=== PATIENT | male | born 1970 | race Caucasian/White ===

== ENCOUNTER 2023-06-04 20:20 | Emergency (ER) | payer OTHER ==
[2023-06-04] MEDS ORDERED: Ondansetron PF 4 MG/2 ML Vial ONE (21:36)
[2023-06-04] MEDS ORDERED: Morphine 4 MG/ML VIAL ONE ×2 (21:36→22:43)
[2023-06-04 21:41] LABS: #Eosinphils 0.2 10x3/uL (0.0-0.5); #Monocytes 0.6 10x3/uL (0.0-1.1); #Neutrophils 4.5 10x3/uL (1.5-8.4); %Basophils 0.5 % (0.0-2.0); %Eosinophils 2.8 % (0.0-6.0); %Lymphocytes 34.9 % (18.0-47.0); %Monocytes 6.8 % (0.0-10.0); %Neutrophils 54.8 % (40.0-75.0); Hematocrit 42.7 % (38.8-50.0); Hemoglobin 14.9 g/dL (13.5-17.5); Mean Corpuscular HGB CONC 34.9 g/dL (32.0-36.0); Mean Corpuscular Hemoglobin 30.7 pg (27.0-33.0); Mean Platelet Volume 9.9 fl (7.4-10.4); Platelet Count 264 10x3/uL (150-450); RBC Distribution Width 12.5 % (11.5-14.5); Red Blood Cell (RBC) Count 4.85 10x6/uL (4.32-5.72); White Blood Cell (WBC) Count 8.3 10x3/uL (3.5-10.5)
[2023-06-04 21:50] LABS: ALT (SGPT) 18 U/L (8-55); AST (SGOT) 15 U/L (5-34); Albumin 4.8 g/dL (3.5-5.0); Alkaline Phosphatase 53 U/L (40-110); Anion Gap 17 mmol/L (10-20); BUN (Urea Nitrogen) 12 mg/dL (8.4-25.7); Bilirubin, Total 0.3 mg/dL (0.2-1.2); Calc. Creatinine Clearance 0 mL/min (70-130); Calcium 9.2 mg/dL (7.8-10.44); Carbon Dioxide 22 mmol/L (22-29); Chloride 104 mmol/L (98-107); Estimated GFR 92; Globulin 2.2 g/dL (2.4-3.5); Glucose 167 mg/dL (70-105); Lipase 22 U/L (8-78); Sodium 139 mmol/L (136-145)
[2023-06-04 21:56] LABS: Troponin I Less than 0.010 ng/mL (< 0.028)
[2023-06-04 23:30] LABS: Bilirubin Neg (Negative); Blood, Urine Negative (Negative); Clarity Clear (Clear); Glucose, Urine (Dipstick) 100 mg/dL (Negative); Ketone, Urine Negative (Negative); Leukocyte Negative (Negative); Nitrite Negative (Negative); Protein, Urine (Dipstick) 15 mg/dl (Neg-Trace); Specific Gravity, Urine 1.015 (1.005-1.030); Urobilinogen Normal mg/dL (Less than 2)
[2023-06-04 23:53] LABS: Bacteria/HPF Rare-Few HPF (None Seen); CAUTI Indications for Culture Dysuria,urgency,freq; RBC/HPF None Seen HPF (0-3); Squamous Epithelial None Seen HPF (0-3); WBC/HPF 0-3 HPF (0-3)
[2023-06-04 23:55] LABS: Urine Culture Reflex No No
== END 2023-06-05 00:20 | disposition home or self-care (01) ==
LOC: CSHERS 20:20
DX: M62.838 Other muscle spasm (principal); E11.9 Type 2 diabetes mellitus without complications; Z79.84 Long term (current) use of oral hypoglycemic drugs
CPT/HCPCS: 74177; 80053; 81001; 83690; 84484; 85025; 93005; 96374; 96375; 96376; J2270; J2405